=== PATIENT | male | born 1965 | race Caucasian/White ===

== ENCOUNTER 2021-01-21 11:46 | Emergency (ER) | payer MEDICAID ==
[~2021-01-21] VITALS: Ht 180.3 cm; Wt 94.0 kg
[2021-01-21 12:01] VITALS: BP 168/100
[2021-01-21] MEDS ORDERED: BACITRACIN ZINC OINT UDPKT TOP ONE (12:15)
[2021-01-21] MEDS ORDERED: LIDOCAINE HCL/EPINEPHRINE 1%-EPI 1:100,000 10 ML VIAL IJ ONE (12:15)
[2021-01-21] MEDS ORDERED: TETANUS, DIPHTHERIA, PERTUSSIS VAC/PF 0.5ML (>7YR OLD) IM ONE (12:15)
[2021-01-21] MEDS ORDERED: CEPH500C2 MT (13:40)
[2021-01-21] MEDS ORDERED: IBUP-2029 MT (13:40)
== END 2021-01-21 14:00 | disposition home or self-care (01) ==
LOC: ER 11:46
DX: S61.012A Laceration without foreign body of left thumb without damage to nail, initial encounter (principal); W45.8XXA Other foreign body or object entering through skin, initial encounter; Y93.89 Activity, other specified; Y92.89 Other specified places as the place of occurrence of the external cause; Y99.8 Other external cause status
CPT/HCPCS: 12002; 73130; 99283; A4217; J3490; Z7610; 90715